=== PATIENT | female | born 1960 | race Caucasian/White ===

== ENCOUNTER 2018-07-09 16:09 | Day surgery (SDC) | payer OTHER ==
[2018-07-09] MEDS ORDERED: LIDOCAINE 1% 300 MG/30 ML SDV ONE (16:48)
[2018-07-09] MEDS ORDERED: HEPARIN 50,000 UNIT/10 ML VIAL ONE (16:49)
[2018-07-09] MEDS ORDERED: MEPERIDINE 25 MG/ML SYR IVP PRN (17:15)
[2018-07-09] MEDS ORDERED: NALOXONE HCL 0.4 MG/ML INJ IVP PRN (17:15)
[2018-07-09] MEDS ORDERED: fentaNYL 100 MCG/2 ML INJ IVP PRN (17:15)
[2018-07-09] MEDS ORDERED: NS 1,000 ML IV SCH (17:15)
[2018-07-09] MEDS ORDERED: MIDAZOLAM 2 MG/2 ML VIAL IVP PRN (17:15)
[2018-07-09] MEDS ORDERED: FLUMAZENIL 0.5 MG/5 ML MDV IVP PRN (17:15)
[2018-07-09] MEDS ORDERED: ceFAZolin 2 GM/DEXTROSE 100 ML IV ONE (17:40)
--- NOTE | 2018-07-09 17:44 | PDRADPRE ---
Radiology History & Physical Indication for procedure: cancer (Breast CA, need to start chemo immediately. ) Home medications: predniSONE 4 mg PO BID 07/09/18 [Last Taken Unknown] Allergies/Adverse Reactions: latex Allergy (Verified 07/09/18 16:58) Itching Mental status: A&Ox3 Heart exam: regular rate and rhythm Lungs exam: clear to auscultation Mallampati Score: Class 2
--- NOTE | 2018-07-09 17:45 | PDPROPOC ---
Sedation Plan of Care Sedation Plan of Care: vital signs stable, mental status noted, patient educated of risks, benefits, alternatives, patient can tolerate sedation ASA Classification: ASA 2 Planned drugs: fentanyl, midazolam Mallampati Score: Class 2 Mallampati Reference Image: Patient passed 3-3-2 rule?: Yes
[2018-07-09 17:54] LABS: INR 0.99 (0.83-1.16); PROTIME(PATIENT) 13.3 SEC (12.0-15.0)
--- NOTE | 2018-07-09 19:10 | PDRADPN ---
Radiology Procedure Note Date of Procedure: 07/09/18 Radiologist: Kale Cardona Anesthesia: IV Sedation Pre-op Diagnosis: Breast CA Post-op Diagnosis: Breast CA Indication: Breast CA Procedure: Chest port placement Finding(s): Tip of catheter appropriately positioned at equator of right atrium. [address] safe power port. Inf/Abcess present in the surg proc area at time of surgery?: No
[2018-07-09] MEDS ORDERED: ACETAMINOPHEN 325 MG TAB PO PRN (19:12)
[2018-07-09] MEDS ORDERED: ONDANSETRON 4 MG/2 ML VIAL IVP PRN (19:12)
[2018-07-09 20:22] VITALS: BP 153/83
== END 2018-07-09 20:24 | disposition home or self-care (01) ==
LOC: FIMAGING 16:09
PROVIDERS: ATTEND Internal Medicine Hematology & Oncology
PROC: 02H633Z Insertion of Infusion Device into Right Atrium, Percutaneous Approach (ICD-10-PCS; principal; 2018-07-09 19:22)
PROC: 0JH60XZ Insertion of Tunneled Vascular Access Device into Chest Subcutaneous Tissue and Fascia, Open Approach (ICD-10-PCS; principal; 2018-07-09 19:22)
DX: Z45.2 Encounter for adjustment and management of vascular access device (principal); C50.919 Malignant neoplasm of unspecified site of unspecified female breast
CPT/HCPCS: 36561; 77001; C1769; C1750; J0690; J1642; J1644; J2250; J2310; J3010